=== PATIENT | female | born 1995 | race Caucasian/White ===

== ENCOUNTER 2018-01-23 13:19 | Emergency (ER) | payer MEDICAID ==
[~2018-01-23] VITALS: Ht 157.5 cm; Wt 53.4 kg
[2018-01-23 13:33] VITALS: BP 111/84
[2018-01-23] MEDS ORDERED: ketorolac trometh inj. 60 MG/2 ML VIAL IM ONE (13:40)
[2018-01-23] MEDS ORDERED: IBUP-1984 PO (13:40)
[2018-01-23] MEDS ORDERED: PENI250T2 PO (13:40)
== END 2018-01-23 14:14 | disposition home or self-care (01) ==
LOC: ER 13:20
DX: K08.89 Other specified disorders of teeth and supporting structures (principal); Z79.899 Other long term (current) drug therapy
CPT/HCPCS: 96372; 99283; J1885